=== PATIENT | female | born 1950 | race Hispanic/Latino ===

== ENCOUNTER 2019-03-31 06:58 | Day surgery (SDC) | payer MEDICARE ==
[~2019-03-31] VITALS: Ht 154.9 cm; Wt 93.0 kg
[~2019-03-31 06:58] MED LIST: DEXL60CA3 PO; DULO30CA52 PO; FENT1PAT60 TD; FESO4TAB PO; FOLI0.8T PO; FURO20TA4 PO; GABA-531 PO; IBUP-2077 PO; INSU3INS5 SQ; LISI40TA4 PO; MAGN200T4 PO; MECL-160 PO; MILK500C PO; NADO20TA12 PO; OMEG100014 PO; ONDA4TAB10 PO; OXYC10TA48 PO; PANT20TA12 PO; RANI150C4 PO; RIFA550T PO; SPIR25TA6 PO
[2019-03-31] MEDS ORDERED: SODIUM CHLORIDE 0.9% 1000ML 1,000 ML IV ONE (07:12)
[2019-03-31 07:23] VITALS: BP 130/61
[2019-03-31] MEDS ORDERED: VITA400C73 PO (08:03)
[2019-03-31] MEDS ORDERED: RANI150T7 PO (08:03)
[2019-03-31] MEDS ORDERED: RIFA550T PO (08:03)
[2019-03-31] MEDS ORDERED: NITR100C PO (08:03)
[2019-03-31] MEDS ORDERED: LACT10SO PO (08:03)
[2019-03-31] MEDS ORDERED: LIDOCAINE HCL 2% 20ML ONE (09:31)
[2019-03-31] MEDS ORDERED: PROPOFOL 10 MG/ML 20ML VIAL IV ONE (09:31)
[2019-03-31 09:46] VITALS: BP 127/60
[2019-03-31 09:51] VITALS: BP 114/60
[2019-03-31 09:56] VITALS: BP 124/68
--- NOTE | 2019-03-31 13:15 | NUR ---
PT LEFT VIA WHEELCHAIR IN MEDICADE TSF D/C INSTRUCTIONS GIVEN TO PATIENT, WITH F/U TOY. PT STABLE NO INSTRUCTIONS
== END 2019-03-31 13:17 | disposition home or self-care (01) ==
LOC: DAH 06:58 → ENDO 06:58
PROVIDERS: ATTEND Internal Medicine
DX: R10.11 Right upper quadrant pain (principal); K31.7 Polyp of stomach and duodenum; K74.60 Unspecified cirrhosis of liver; K72.90 Hepatic failure, unspecified without coma; I85.00 Esophageal varices without bleeding; K29.40 Chronic atrophic gastritis without bleeding; K21.0 Gastro-esophageal reflux disease with esophagitis; K57.30 Diverticulosis of large intestine without perforation or abscess without bleeding; I10 Essential (primary) hypertension; R30.0 Dysuria; Z79.899 Other long term (current) drug therapy; F41.9 Anxiety disorder, unspecified; F32.9 Major depressive disorder, single episode, unspecified; E11.9 Type 2 diabetes mellitus without complications; Z90.710 Acquired absence of both cervix and uterus; Z96.653 Presence of artificial knee joint, bilateral; Z87.442 Personal history of urinary calculi
CPT/HCPCS: 43239; 43251; 82948; 88305; A4215; A4221; A4222; A4223; A4606; A4615; A4663; J2704; J3490; J7030